=== PATIENT | female | born 1975 | race Caucasian/White ===

== ENCOUNTER 2020-08-11 17:07 | Emergency (ER) | payer SELFPAY ==
[~2020-08-11] VITALS: Ht 162.6 cm; Wt 82.4 kg
[~2020-08-11 17:07] MED LIST: CLIN300C9 PO; HYDR-3165 PO
[2020-08-11 18:46] VITALS: BP 116/60
[2020-08-11] MEDS ORDERED: ONDA4TAB12 PO (19:12)
[2020-08-11] MEDS ORDERED: HYOS0.1265 SL (19:12)
== END 2020-08-11 19:20 | disposition home or self-care (01) ==
LOC: ER 17:07
DX: R10.12 Left upper quadrant pain (principal); K21.9 Gastro-esophageal reflux disease without esophagitis; J45.909 Unspecified asthma, uncomplicated; F17.210 Nicotine dependence, cigarettes, uncomplicated
CPT/HCPCS: 36415; 74177; 80053; 81001; 81025; 82553; 83690; 83735; 84484; 85025; 93005; 96361; 96374; 96375; 99285; J1885; J2405; J3490; J7030; Q9967